=== PATIENT | female | born 1960 | race Caucasian/White ===

== ENCOUNTER 2017-02-08 12:26 | Emergency (ER) | payer MEDICARE ==
[2017-02-08 15:19] LABS: Hematocrit 40 % (35-47); Hemoglobin 13.4 g/dl (12.0-16.0); Mean Corpuscular HGB Conc 33 g/dl (31-36); Mean Corpuscular Hemoglobin 32 pg (27-31); Mean Corpuscular Volume 95 fL (80-97); Mean Platelet Volume 9 um3 (7.4-10.4); Red Blood Count 4.23 10^6/ul (4.0-5.4); Red Cell Distribution Width 12 % (10.5-15); White Blood Count 5.4 10^3/ul (3.5-10.8)
[2017-02-08 16:02] LABS: Albumin 4.4 g/dL (3.2-5.2); BUN/Creatinine Ratio 28.3 (8-20); Calcium 9.2 mg/dL (8.6-10.3); EGFR Non-African American 104.2 (>60); Globulin 2.3 g/dL (2-4); Total Bilirubin 0.3 mg/dL (0.2-1.0); Total Protein 6.7 g/dL (6.4-8.9)
[2017-02-08 18:10] LABS: Urine Bilirubin Negative (Negative); Urine Glucose Negative (Negative); Urine Nitrite Negative (Negative)
--- NOTE | 2017-02-08 20:13 | ED ---
Madi Murcia Kyle, scribed for Nelson Díaz MD on 02/08/17 at 1707 . Abdominal Pain/Female - HPI Summary HPI Summary: This is a 56 yo female presenting to the ED with complaints of right sided abdominal pain that began 3 days ago. She reports that the pain is a sharpness and a tightness that feels like when she had her menstrual period. No increased pain with walking. She does report vaginal discharge and dysuria as well. She admits to a history of UTIs but this seems different. She reports this does feel like her previous yeast infection. She believes this is more related to the discharge than it is the abdominal pain but she was unable to get into her doctor's office. No nausea or vomiting. She denies any fevers or chills. - History of Current Complaint Chief Complaint: EDAbdPain Stated Complaint: LOWER ABD PAIN Time Seen by Provider: 02/08/17 17:01 Hx Obtained From: Patient ?: No Onset/Duration: Lasting Days - 3 days Timing: Constant Severity Initially: Moderate Severity Currently: Moderate Pain Intensity: 5 Pain Scale Used: 0-10 Numeric Location: Other - Right side, into the pelvis Radiates: No Character: Sharp, Other: - tightness Aggravating Factor(s): Nothing Alleviating Factor(s): Nothing Allergies/Adverse Reactions: Allergies Allergy/AdvReac Type Severity Reaction Status Date / Time Valproic Acid [From Depakote] Allergy Unknown Unknown Verified 02/08/17 12:36 Reaction Details PMH/Surg Hx/FS Hx/Imm Hx Endocrine/Hematology History: Denies: Hx Diabetes Cardiovascular History: Denies: Hx Congestive Heart Failure, Hx Hypertension Sensory History: Denies: Hx Contacts or Glasses Opthamlomology History: Denies: Hx Contacts or Glasses - Surgical History Surgery Procedure, Year, and Place: Hysterectomy and Tubal ligation. Infectious Disease History: No Infectious Disease History: Denies: Traveled Outside the [place] in Last 30 Days - Family History Known Family History: Positive: Diabetes, Other - glaucoma - Social History Alcohol Use: None Substance Use Type: Reports: None Smoking Status (MU): Never Smoked Tobacco Review of Systems Negative: Fever, Chills Negative: Chest Pain Negative: Shortness Of Breath Positive: Abdominal Pain. Negative: Vomiting, Diarrhea, Nausea Positive: dysuria, discharge - vaginal All Other Systems Reviewed And Are Negative: Yes Physical Exam - Summary Physical Exam Summary: General: well-appearing, no pain distress Skin: warm, color reflects adequate perfusion, dry Head: normal Eyes: EOMI, RAPHAEL ENT: normal Neck: supple, nontender Respiratory: CTA, breath sounds present Cardiovascular: RRR Abdomen: soft, tender in the right inguinal area. Bowel: present Musculoskeletal: normal, strength/ROM intact Neurological: normal, sensory/motor intact, A&O x3 Psychological: affect/mood appropriate Triage Information Reviewed: Yes Vital Signs On Initial Exam: Initial Vitals Temp Pulse Resp BP Pulse Ox 97.2 F 106 20 123/85 98 02/08/17 12:33 02/08/17 12:33 02/08/17 12:33 02/08/17 12:33 02/08/17 12:33 Vital Signs Reviewed: Yes Appearance: Positive: Well-Appearing Skin: Positive: Warm Head/Face: Positive: Normal Head/Face Inspection Eyes: Positive: EOMI, RAPHAEL ENT: Positive: Normal ENT inspection Neck: Positive: Supple Respiratory/Lung Sounds: Positive: Clear to Auscultation, Breath Sounds Present Cardiovascular: Positive: Normal, RRR Abdomen Description: Positive: Nontender, No Organomegaly, Soft Bowel Sounds: Positive: Present Pelvic Exam: Positive: external exam normal, other - CLEAR VAGINAL DISCHARGE Musculoskeletal: Positive: Normal Neurological: Positive: Normal Psychiatric: Positive: Normal - Kaitlynn Coma Scale Coma Scale Total: 15 Diagnostics - Vital Signs Vital Signs Temp Pulse Resp BP Pulse Ox 02/08/17 16:51 86 100 02/08/17 16:50 98.9 F 83 18 123/75 99 02/08/17 15:40 98.7 F 76 16 107/64 99 02/08/17 14:19 98.7 F 81 16 102/65 98 02/08/17 12:33 97.2 F 106 20 123/85 98 - Laboratory Lab Results: Lab Results 02/08/17 02/08/17 Range/Units 14:58 14:58 WBC 5.4 (3.5-10.8) 10^3/ul RBC 4.23 (4.0-5.4) 10^6/ul Hgb 13.4 (12.0-16.0) g/dl Hct 40 (35-47) % MCV 95 (80-97) fL MCH 32 H (27-31) pg MCHC 33 (31-36) g/dl RDW 12 (10.5-15) % Plt Count 182 (150-450) 10^3/ul MPV 9 (7.4-10.4) um3 Neut % (Auto) 71.7 (38-83) % Lymph % (Auto) 20.4 L (25-47) % [place] % (Auto) 6.6 (1-9) % Eos % (Auto) 0.7 (0-6) % Baso % (Auto) 0.6 (0-2) % Absolute Neuts (auto) 3.9 (1.5-7.7) 10^3/ul Absolute Lymphs (auto) 1.1 (1.0-4.8) 10^3/ul Absolute Monos (auto) 0.4 (0-0.8) 10^3/ul Absolute Eos (auto) 0 (0-0.6) 10^3/ul Absolute Basos (auto) 0 (0-0.2) 10^3/ul Absolute Nucleated RBC 0 10^3/ul Nucleated RBC % 0 Sodium 148 H (133-145) mmol/L Potassium 4.5 (3.5-5.0) mmol/L Chloride 114 H (101-111) mmol/L Carbon Dioxide 25 (22-32) mmol/L Anion Gap 9 (2-11) mmol/L BUN 17 (6-24) mg/dL Creatinine 0.60 (0.51-0.95) mg/dL Est GFR ( Amer) 134.0 (>60) Est GFR (Non-Af Amer) 104.2 (>60) BUN/Creatinine Ratio 28.3 H (8-20) Glucose 94 (70-100) mg/dL Calcium 9.2 (8.6-10.3) mg/dL Total Bilirubin 0.30 (0.2-1.0) mg/dL AST 15 (13-39) U/L ALT 9 (7-52) U/L Alkaline Phosphatase 102 (34-104) U/L Total Protein 6.7 (6.4-8.9) g/dL Albumin 4.4 (3.2-5.2) g/dL Globulin 2.3 (2-4) g/dL Albumin/Globulin Ratio 1.9 (1-3) Result Diagrams: 02/08/17 14:58 02/08/17 14:58 Lab Statement: Any lab studies that have been ordered have been reviewed, and results considered in the medical decision making process. Abdominal Pain Fem Course/Dx - Course Course Of Treatment: ON EXAM, NO ABDOMINAL TENDERNESS TO PALPATION. PATIENT REORTS VAGINAL IRRITATION AND WHITE DISCHARGE. ON PELVIC EXAM THERE IS A CLEAR DISCHARGE. THE PLAN IS TO TREAT FOR BOTH YEAST AND BV. THE PATIENT WILL F/U WITH PMD. WE DISCUSSED THE S/SX OF APPENDICITIS; THE PATIENT WILL RETURN IF SHE HAS ANY ABDOMINAL PAIN OR SIGNS OF APPENDICITIS OR IF SHE DOES NOT IMPROVE. THIS WAS ALL DISCUSSED WITH THE PATIENT. - Diagnoses Provider Diagnoses: Vaginitis Discharge - Discharge Plan Condition: Stable Disposition: HOME Prescriptions: Fluconazole [Diflucan 150 MG (NF)] 150 mg PO ONCE #1 tab Metronidazole [Flagyl 500 MG TAB] 500 mg PO BID #14 tab Patient Education Materials: Vaginitis (ED) Referrals: Heather Valencia MD [Primary Care Provider] - Additional Instructions: FOLLOW UP WITH YOUR DOCTOR. RETURN TO THE EMERGENCY DEPARTMENT FOR ANY WORSENING OF YOUR CONDITION; ABDOMINAL PAIN, FEVER, VOMITING, YOU FEEL ILL OR QUESTIONS OR CONCERNS. The documentation as recorded by the Madi chang Kyle accurately reflects the service I personally performed and the decisions made by me, Nelson Díaz MD.
[2017-02-08 20:32] VITALS: BP 117/73
[2017-02-08 22:59] LABS: Potassium 4.2 mmol/L (3.5-5.0)
== END 2017-02-08 20:31 | disposition home or self-care (01) ==
LOC: ED 12:26
DX: N76.0 Acute vaginitis (principal)
CPT/HCPCS: 36415; 80053; 81003; 85025; 87480; 87491; 87510; 87591; 87661; 99282

== ENCOUNTER 2017-10-29 13:34 | Emergency (ER) | payer MEDICARE ==
[2017-10-29 13:44] VITALS: BP 139/92
--- NOTE | 2017-10-29 13:59 | UC ---
Complaint Female HPI - HPI Summary HPI Summary: noticed a sore area on right side of labia this weekend - History Of Current Complaint Chief Complaint: UCGU Stated Complaint: PERSONAL Time Seen by Provider: 10/29/17 13:50 Hx Obtained From: Patient ?: No Onset/Duration: Sudden Onset, Lasting Days, Still Present Timing: Constant Pain Intensity: 5 Pain Scale Used: 0-10 Numeric Character: Burning Alleviating Factor(s): Nothing Associated Signs And Symptoms: Positive: Negative - Allergies/Home Medications Allergies/Adverse Reactions: Allergies Allergy/AdvReac Type Severity Reaction Status Date / Time divalproex sodium Allergy anaph Verified 10/29/17 13:45 [From Depakote] PMH/Surg Hx/FS Hx/Imm Hx Previously Healthy: Yes - patient states last pelvic exam was years ago - Surgical History Surgical History: Yes Surgery Procedure, Year, and Place: Tubal ligation. - Family History Known Family History: Positive: Diabetes, Other - glaucoma - Social History Occupation: Disabled Lives: Alone Alcohol Use: None Substance Use Type: None Smoking Status (MU): Never Smoked Tobacco Review of Systems Constitutional: Negative Skin: Other - sore area on right side of Labia Eyes: Negative ENT: Negative Respiratory: Negative Cardiovascular: Negative Gastrointestinal: Negative Genitourinary: Negative Motor: Negative Neurovascular: Negative Musculoskeletal: Negative Neurological: Negative Psychological: Negative Is Patient Immunocompromised?: No All Other Systems Reviewed And Are Negative: Yes Physical Exam Triage Information Reviewed: Yes Appearance: Well-Appearing, No Pain Distress, Well-Nourished Vital Signs: Initial Vital Signs Temp 97 F 10/29/17 13:41 Pulse 81 10/29/17 13:41 Resp 17 10/29/17 13:41 BP 139/92 10/29/17 13:41 Pulse Ox 100 10/29/17 13:41 Vital Signs Reviewed: Yes Eye Exam: Normal Eyes: Positive: Conjunctiva Clear ENT Exam: Normal ENT: Positive: Normal ENT inspection, Hearing grossly normal. Negative: Trismus , Muffled voice, Hoarse voice, Dental tenderness Dental Exam: Normal Neck exam: Normal Neck: Positive: Supple, Nontender Respiratory Exam: Normal Respiratory: Positive: Chest non-tender, No respiratory distress, No accessory muscle use Cardiovascular Exam: Normal Cardiovascular: Positive: RRR, Pulses Normal, Brisk Capillary Refill Abdominal Exam: Normal Abdomen Description: Positive: Nontender, No Organomegaly, Soft. Negative: CVA Tenderness (R), CVA Tenderness (L) Pelvic Exam: Positive: Speculum Exam Normal, Bimanual Exam Normal, No Cerv. Motion Tender, Other - abscess on right labia majoria, firm, tender to touch Musculoskeletal Exam: Normal Musculoskeletal: Positive: Strength Intact, ROM Intact Neurological Exam: Normal Neurological: Positive: Alert, Muscle Tone Normal Psychological Exam: Normal Skin Exam: Normal Skin: Positive: Other - right labial abscess approx 5 mm in diameter Complaint Female Dx - Course Course Of Treatment: warm compress, bactrim, follow with pcp this week for re- check - Differential Dx/Diagnosis Provider Diagnoses: right labial cyst Discharge - Sign-Out/Discharge Documenting (check all that apply): Discharge/Admit/Transfer - Discharge Plan Condition: Stable Disposition: HOME Prescriptions: Sulfamethox/Trimethoprim DS* [Bactrim DS 800/160 TAB*] 1 tab PO BID #20 tab Patient Education Materials: Abscess (ED), Warm Compress or Soak (ED) Referrals: Heather Valencia MD [Primary Care Provider] - 3 Days - Billing Disposition and Condition Condition: STABLE Disposition: Home
--- NOTE | 2017-10-30 19:44 | UC ---
- Progress Note Progress Note: PLEASE CALL PATIENT. VAGINAL SWAB POSITIVE FOR GARDNERELLA. THIS MAY NOT BE CLINICALLY SIGNIFICANT. CONTINUE WITH BACTRIM FOR CYST AND IF SYMPTOMS DO NOT COMPLETELY RESOLVE WOULD READDRESS. FOLLOW-UP WITH PCP ADVISED. - SHANIA SMALLWOOD MD. Discharge - Sign-Out/Discharge Documenting (check all that apply): Post-Discharge Follow Up - Discharge Plan Condition: Stable Disposition: HOME Prescriptions: Sulfamethox/Trimethoprim DS* [Bactrim DS 800/160 TAB*] 1 tab PO BID #20 tab Patient Education Materials: Abscess (ED), Warm Compress or Soak (ED) Referrals: Heather Valencia MD [Primary Care Provider] - 3 Days - Billing Disposition and Condition Condition: STABLE Disposition: Home
--- NOTE | 2017-10-31 08:30 | UC ---
- Progress Note Progress Note: neg gc/ch neg trich no change ljj 10/31/2017 Discharge - Sign-Out/Discharge Documenting (check all that apply): Post-Discharge Follow Up - Discharge Plan Condition: Stable Disposition: HOME Prescriptions: Sulfamethox/Trimethoprim DS* [Bactrim DS 800/160 TAB*] 1 tab PO BID #20 tab Patient Education Materials: Abscess (ED), Warm Compress or Soak (ED) Referrals: Heather Valencia MD [Primary Care Provider] - 3 Days - Billing Disposition and Condition Condition: STABLE Disposition: Home
--- NOTE | 2017-10-31 20:35 | UC ---
- Progress Note Progress Note: call patient and assure abscess have resolved --if not assure patient has arranged follow up care Discharge - Sign-Out/Discharge Documenting (check all that apply): Post-Discharge Follow Up - Discharge Plan Condition: Stable Disposition: HOME Prescriptions: Sulfamethox/Trimethoprim DS* [Bactrim DS 800/160 TAB*] 1 tab PO BID #20 tab Patient Education Materials: Abscess (ED), Warm Compress or Soak (ED) Referrals: Heather Valencia MD [Primary Care Provider] - 3 Days - Billing Disposition and Condition Condition: STABLE Disposition: Home
== END 2017-10-29 14:43 | disposition home or self-care (01) ==
LOC: UCEAST 13:34
DX: N90.7 Vulvar cyst (principal); Z88.8 Allergy status to other drugs, medicaments and biological substances; Z98.51 Tubal ligation status
CPT/HCPCS: 81003; 87070; 87480; 87491; 87510; 87591; 87661; 99212; G0463